=== PATIENT | male | born 1980 | race Caucasian/White ===

== ENCOUNTER 2018-11-30 13:12 | Emergency (ER) | payer MEDICAID ==
[2018-11-30 13:24] VITALS: RESP 18
[2018-11-30] MEDS ORDERED: SODIUM CHLORIDE 0.9% 1,000 ML IV STA (13:47)
--- NOTE | 2018-11-30 13:50 | ED ---
Syncope HPI - General Chief Complaint: Dizziness Stated Complaint: Nausea,light headed Time Seen by Provider: 11/30/18 13:14 Source: EMS, RN notes reviewed, old records reviewed Mode of arrival: EMS Limitations: language barrier - History of Present Illness Initial Comments: Patient is a 38-year-old male who presents return today with complaints of nausea and lightheadedness. Patient reports symptoms started today while he was at work. He states that he recently took medication for an upper respiratory infection and finished the antibiotic and steroids 3 days ago. Patient states that he does have some intermittent loose stools. He denies any chest pain or abdominal pain. He reports that he would get these waves of his body and search feel dizzy and lightheaded. He denies headache at this time.Patient denies any recent fever, chills, shortness of breath, chest pain, back pain, abdominal pain, nausea vomiting, numbness or tingling, dysuria or hematuria, constipation or diarrhea, headaches or visual changes, or any other current symptoms - Related Data Home Medications Medication Instructions Recorded Confirmed Ibuprofen [Motrin Ib] 600 mg PO Q6H PRN 11/30/18 11/30/18 Metoprolol Tartrate [Lopressor] 25 mg PO HS 11/30/18 11/30/18 Metoprolol Tartrate [Lopressor] 37.5 mg PO DAILY 11/30/18 11/30/18 Previous Rx's Medication Instructions Recorded Meclizine [Antivert] 12.5 mg PO Q6H #12 tablet 11/30/18 Allergies Allergy/AdvReac Type Severity Reaction Status Date / Time No Known Allergies Allergy Verified 11/30/18 13:33 Review of Systems ROS Statement: Those systems with pertinent positive or pertinent negative responses have been documented in the HPI. ROS Other: All systems not noted in ROS Statement are negative. Past Medical History Additional Past Medical History / Comment(s): PVC's History of Any Multi-Drug Resistant Organisms: None Reported Past Surgical History: Appendectomy, Cholecystectomy Past Psychological History: No Psychological Hx Reported Smoking Status: Never smoker Past Alcohol Use History: Occasional Past Drug Use History: None Reported General Exam - General Exam Comments Initial Comments: This is an alert and oriented 2-year-old male. No distress. Limitations: no limitations General appearance: alert, in no apparent distress Head exam: Present: atraumatic, normocephalic, normal inspection Eye exam: Present: normal appearance, PERRL, EOMI. Absent: scleral icterus, conjunctival injection, periorbital swelling ENT exam: Present: normal exam, mucous membranes moist Neck exam: Present: normal inspection. Absent: tenderness, meningismus, lymphadenopathy Respiratory exam: Present: normal lung sounds bilaterally. Absent: respiratory distress, wheezes, rales, rhonchi, stridor Cardiovascular Exam: Present: regular rate, normal rhythm, normal heart sounds. Absent: systolic murmur, diastolic murmur, rubs, gallop, clicks GI/Abdominal exam: Present: soft, normal bowel sounds. Absent: distended, tenderness, guarding, rebound, rigid Extremities exam: Present: normal inspection, full ROM, normal capillary refill. Absent: tenderness, pedal edema, joint swelling, calf tenderness Back exam: Present: normal inspection Neurological exam: Present: alert, oriented X3, CN II-XII intact Course Vital Signs 11/30/18 11/30/18 13:16 15:32 Temperature 98.7 F Pulse Rate 98 Pulse Rate [ 90 Sitting] Pulse Rate [ 105 H Standing] Pulse Rate [ 92 Supine] Respiratory 18 Rate Blood Pressure 136/96 Blood Pressure 135/86 [Sitting] Blood Pressure 128/94 [Standing] Blood Pressure 139/95 [Supine] O2 Sat by Pulse 100 Oximetry EKG Findings - EKG Comments: EKG Findings:: EKG performed at 1334 shows normal sinus rhythm, normal EKG noted. Ventricular rate of 87 beats were minute. Most 170 ms. QS duration 82 ms. QT QTc is 354/425 ms. Medical Decision Making - Medical Decision Making Patient is a 38-year-old male presents emergency Department today with complaints of lightheadedness. He reports that he felt dizzy while driving in her right ear via EMS. Also complained of some nausea. This EKG is normal. Normal troponin. Lab work is otherwise unremarkable. He complains of no pain at this time. Denies any dyspnea or chest pain or abdominal pain. He is given fluids. All of his lab work was unremarkable. Discussed with the Patient and signed could be possibly vertigo due to his recent URI. I discussed the importance of dictation that he stays hydrated. Patient denied any palpitations as well during these episodes. I discussed that he have close follow-up with his primary care physician and stay hydrated with water. Patient agrees to treatment plan will comply. Return parameters were discussed. - Lab Data Result diagrams: 11/30/18 13:31 11/30/18 13:31 Lab Results 11/30/18 11/30/18 11/30/18 Range/Units 13:31 13:31 13:31 WBC 7.1 (3.8-10.6) k/uL RBC 5.41 (4.30-5.90) m/uL Hgb 16.4 (13.0-17.5) gm/dL Hct 47.9 (39.0-53.0) % MCV 88.5 (80.0-100.0) fL MCH 30.2 (25.0-35.0) pg MCHC 34.2 (31.0-37.0) g/dL RDW 13.2 (11.5-15.5) % Plt Count 167 (150-450) k/uL Neutrophils % 72 % Lymphocytes % 19 % Monocytes % 5 % Eosinophils % 2 % Basophils % 0 % Neutrophils # 5.1 (1.3-7.7) k/uL Lymphocytes # 1.4 (1.0-4.8) k/uL Monocytes # 0.4 (0-1.0) k/uL Eosinophils # 0.2 (0-0.7) k/uL Basophils # 0.0 (0-0.2) k/uL PT 11.0 (9.0-12.0) sec INR 1.0 (<1.2) Sodium 141 (137-145) mmol/L Potassium 4.7 (3.5-5.1) mmol/L Chloride 107 (98-107) mmol/L Carbon Dioxide 25 (22-30) mmol/L Anion Gap 9 mmol/L BUN 14 (9-20) mg/dL Creatinine 0.91 (0.66-1.25) mg/dL Est GFR (CKD-EPI)AfAm >90 (>60 ml/min/1.73 sqM) Est GFR (CKD-EPI)NonAf >90 (>60 ml/min/1.73 sqM) Glucose 100 H (74-99) mg/dL Calcium 9.6 (8.4-10.2) mg/dL Total Bilirubin 0.8 (0.2-1.3) mg/dL AST 43 (17-59) U/L ALT 92 H (21-72) U/L Alkaline Phosphatase 65 (38-126) U/L Troponin I (0.000-0.034) ng/mL Total Protein 7.7 (6.3-8.2) g/dL Albumin 4.7 (3.5-5.0) g/dL Urine Color Urine Appearance (Clear) Urine pH (5.0-8.0) Ur Specific [place] (1.001-1.035) Urine Protein (Negative) Urine Glucose (UA) (Negative) Urine Ketones (Negative) Urine Blood (Negative) Urine Nitrite (Negative) Urine Bilirubin (Negative) Urine Urobilinogen (<2.0) mg/dL Ur Leukocyte Esterase (Negative) C. difficile (EIA) Intrp (Negative) 11/30/18 11/30/18 11/30/18 Range/Units 13:31 14:00 15:33 WBC (3.8-10.6) k/uL RBC (4.30-5.90) m/uL Hgb (13.0-17.5) gm/dL Hct (39.0-53.0) % MCV (80.0-100.0) fL MCH (25.0-35.0) pg MCHC (31.0-37.0) g/dL RDW (11.5-15.5) % Plt Count (150-450) k/uL Neutrophils % % Lymphocytes % % Monocytes % % Eosinophils % % Basophils % % Neutrophils # (1.3-7.7) k/uL Lymphocytes # (1.0-4.8) k/uL Monocytes # (0-1.0) k/uL Eosinophils # (0-0.7) k/uL Basophils # (0-0.2) k/uL PT (9.0-12.0) sec INR (<1.2) Sodium (137-145) mmol/L Potassium (3.5-5.1) mmol/L Chloride (98-107) mmol/L Carbon Dioxide (22-30) mmol/L Anion Gap mmol/L BUN (9-20) mg/dL Creatinine (0.66-1.25) mg/dL Est GFR (CKD-EPI)AfAm (>60 ml/min/1.73 sqM) Est GFR (CKD-EPI)NonAf (>60 ml/min/1.73 sqM) Glucose (74-99) mg/dL Calcium (8.4-10.2) mg/dL Total Bilirubin (0.2-1.3) mg/dL AST (17-59) U/L ALT (21-72) U/L Alkaline Phosphatase (38-126) U/L Troponin I <0.012 (0.000-0.034) ng/mL Total Protein (6.3-8.2) g/dL Albumin (3.5-5.0) g/dL Urine Color Yellow Urine Appearance Clear (Clear) Urine pH 6.5 (5.0-8.0) Ur Specific [place] 1.016 (1.001-1.035) Urine Protein Negative (Negative) Urine Glucose (UA) Negative (Negative) Urine Ketones Negative (Negative) Urine Blood Negative (Negative) Urine Nitrite Negative (Negative) Urine Bilirubin Negative (Negative) Urine Urobilinogen <2.0 (<2.0) mg/dL Ur Leukocyte Esterase Negative (Negative) C. difficile (EIA) Intrp Negative (Negative) - Radiology Data Radiology results: report reviewed Normal chest x-ray. Disposition Clinical Impression: Lightheaded Disposition: HOME SELF-CARE Condition: Good Instructions (If sedation given, give patient instructions): Lightheadedness ( ED) Additional Instructions: Patient advised of close follow-up with primary care physician. Rest, remain hydrated. Return to the emergency department if any alarming signs or symptoms occur. Prescriptions: Meclizine [Antivert] 12.5 mg PO Q6H #12 tablet Is patient prescribed a controlled substance at d/c from ED?: No Referrals: None,Stated [Primary Care Provider] - 1-2 days Emelia Ashby MD [STAFF PHYSICIAN] - 1-2 days Time of Disposition: 16:01
[2018-11-30 14:08] LABS: Basophils % (A) 0 %; Eosinophils # (A) 0.2 k/uL (0-0.7); Eosinophils % (A) 2 %; HCT 47.9 % (39.0-53.0); HGB 16.4 gm/dL (13.0-17.5); Lymphocytes # (A) 1.4 k/uL (1.0-4.8); Lymphocytes % (A) 19 %; MCH 30.2 pg (25.0-35.0); MCHC 34.2 g/dL (31.0-37.0); MCV 88.5 fL (80.0-100.0); Mean Platelet Volume 6.4; Monocytes # (A) 0.4 k/uL (0-1.0); Monocytes % (A) 5 %; Neutrophils # (A) 5.1 k/uL (1.3-7.7); Neutrophils % (A) 72 %; Platelet Count 167 k/uL (150-450); RBC 5.41 m/uL (4.30-5.90); RDW 13.2 % (11.5-15.5); WBC 7.1 k/uL (3.8-10.6)
[2018-11-30 14:18] LABS: Appearance,Urine Clear (Clear); Bilirubin,Urine Negative (Negative); Blood,Urine Negative (Negative); Color,Urine Yellow; Glucose,Urine (UA) Negative (Negative); Ketones,Urine Negative (Negative); Leukocyte Esterase,Urine Negative (Negative); Nitrite,Urine Negative (Negative); PH, Urine 6.5 (5.0-8.0); Protein,Urine Negative (Negative); Specific Gravity,Urine 1.016 (1.001-1.035); Urobilinogen,Urine <2.0 mg/dL (<2.0)
[2018-11-30 14:18] LABS: ALT 92 U/L (21-72); AST 43 U/L (17-59); Albumin 4.7 g/dL (3.5-5.0); Alkaline Phosphatase 65 U/L (38-126); Anion Gap 9 mmol/L; Blood Urea Nitrogen 14 mg/dL (9-20); Calcium 9.6 mg/dL (8.4-10.2); Carbon Dioxide 25 mmol/L (22-30); Chloride 107 mmol/L (98-107); Glucose 100 mg/dL (74-99); Potassium 4.7 mmol/L (3.5-5.1); Sodium 141 mmol/L (137-145); Total Bilirubin 0.8 mg/dL (0.2-1.3); Total Protein 7.7 g/dL (6.3-8.2)
--- NOTE | 2018-11-30 14:23 | XR ---
EXAMINATION TYPE: XR chest 2V DATE OF EXAM: 11/30/2018 COMPARISON: NONE HISTORY: Dizziness and nausea TECHNIQUE: Frontal and lateral views of the chest are obtained. FINDINGS: There is no focal air space opacity, pleural effusion, or pneumothorax seen. The cardiac silhouette size is within normal limits. The osseous structures are intact. IMPRESSION: No acute cardiopulmonary process.
[2018-11-30] MEDS ORDERED: MECLIZINE 12.5 MG TAB PO STA (16:01)
[2018-11-30 17:15] VITALS: BP 126/85; PULSE 92; TEMP 97.9
== END 2018-11-30 17:14 | disposition home or self-care (01) ==
LOC: EC 13:12
DX: R42 Dizziness and giddiness (principal); Z79.899 Other long term (current) drug therapy
CPT/HCPCS: 36415; 71046; 80053; 81003; 84484; 85025; 85610; 87324; 93005; 96360; 96361; 99285

== ENCOUNTER 2018-11-30 19:38 | Observation (INO) | payer MEDICAID ==
[2018-11-30] MEDS ORDERED: NALOXONE 0.4 MG/ML 1 ML VIAL IV PRN (22:21)
[2018-11-30] MEDS ORDERED: ACETAMINOPHEN TAB 325 MG TAB PO PRN (22:21)
--- NOTE | 2018-11-30 22:21 | ED ---
General Adult HPI - General Chief complaint: Dizziness Stated complaint: Revist-light headed Time Seen by Provider: 11/30/18 20:21 Source: patient Mode of arrival: wheelchair Limitations: no limitations - History of Present Illness Initial comments: 38-year-old male patient presents to the emergency department today for his second visit for complaints of dizziness and bilateral lower extremity tingling and weakness. Patient states that symptoms started this morning with intermittent waves of lightheadedness and flushed feeling. Patient states that at one point he became so dizzy fell he was going to pass out so he called an ambulance and was transported here. Patient did undergo extensive evaluation in the emergency department including labs and EKG which all appeared to be unremarkable. He was diagnosed with vertigo and discharged home with a prescription for Antivert. Patient states upon arrival he was still having intermittent episodes of dizziness however was sitting in his recliner he started to feel an intense tingling, weakness sensation in his bilateral lower extremities. Patient states that he did stand up and walk around which improved the sensation somewhat but it persisted so he presented here for further evaluation. He denies any unilateral weakness. Denies any numbness to the lower extremities. Denies any recent back injury or head injury. Denies any history of similar symptoms. Patient was recently treated for upper respiratory infection with Augmentin and steroids. Patient denies any recent rash, shortness breath, chest pain, abdominal pain, constipation, back pain, hematuria, dysuria, urinary urgency, urinary frequency, headache, visual changes , or any other complaints. - Related Data Home Medications Medication Instructions Recorded Confirmed Ibuprofen [Motrin Ib] 600 mg PO Q6H PRN 11/30/18 11/30/18 Metoprolol Tartrate [Lopressor] 25 mg PO HS 11/30/18 11/30/18 Metoprolol Tartrate [Lopressor] 37.5 mg PO DAILY 11/30/18 11/30/18 Previous Rx's Medication Instructions Recorded Meclizine [Antivert] 12.5 mg PO Q6H #12 tablet 11/30/18 Allergies Allergy/AdvReac Type Severity Reaction Status Date / Time No Known Allergies Allergy Verified 11/30/18 20:13 Review of Systems ROS Statement: Those systems with pertinent positive or pertinent negative responses have been documented in the HPI. ROS Other: All systems not noted in ROS Statement are negative. Past Medical History Additional Past Medical History / Comment(s): PVC's History of Any Multi-Drug Resistant Organisms: None Reported Past Surgical History: Appendectomy, Cholecystectomy Past Psychological History: No Psychological Hx Reported Smoking Status: Never smoker Past Alcohol Use History: Occasional Past Drug Use History: None Reported General Exam Limitations: no limitations General appearance: alert, in no apparent distress, other (This is a well- developed, well-nourished adult male patient in no acute distress. Vital signs upon presentation are temperature 99.3F, pulse 92, respirations 20, blood pressure 138/93, pulse ox 99% on room air.) Eye exam: Present: normal appearance, PERRL, EOMI, nystagmus (Horizontal gaze nystagmus bilateral, no vertical gaze nystagmus). Absent: scleral icterus, conjunctival injection, periorbital swelling ENT exam: Present: normal exam, normal oropharynx, mucous membranes moist Respiratory exam: Present: normal lung sounds bilaterally. Absent: respiratory distress, wheezes, rales, rhonchi, stridor Cardiovascular Exam: Present: regular rate, normal rhythm, normal heart sounds. Absent: systolic murmur, diastolic murmur, rubs, gallop, clicks GI/Abdominal exam: Present: soft, normal bowel sounds. Absent: distended, tenderness, guarding, rebound, rigid Neurological exam: Present: alert, oriented X3, CN II-XII intact, other ( Strength in all 4 extremities is 5/5.) Expanded Cranial nerves: EOM's Intact: Normal, Facial Palsy with Forehead Movement: Normal, Facial Palsy without Forehead Movement: Normal Cerebellar function: Finger to Nose: Normal Motor strength exam: RUE: 5, LUE: 5, RLE: 5, LLE: 5 Psychiatric exam: Present: normal affect, normal mood Skin exam: Present: warm, dry, intact, normal color. Absent: rash Course Vital Signs 11/30/18 19:56 Temperature 99.3 F Pulse Rate 92 Respiratory 20 Rate Blood Pressure 138/93 O2 Sat by Pulse 99 Oximetry EKG Findings - EKG Comments: EKG Findings:: EKG obtained at 2013 shows normal sinus rhythm with a ventricular rate of 86, AL interval 166, QRS duration 84, QT 350, QTC 418. No evidence of ST elevation or depression. Medical Decision Making - Medical Decision Making 38-year-old male patient presented to the emergency department today for evaluation of intermittent dizziness, lightheadedness, and bilateral leg weakness and tingling. Patient was seen and evaluated in the emergency department earlier today, did review labs from that visit which were unremarkable. Physical examination is unremarkable. He is neurologically intact with no focal neurologic deficits. Patient's second visit with worsening symptoms we will admit for observation for further evaluation the morning. Patient is aware of plan and verbalizes understanding. Disposition Clinical Impression: Dizziness, Weakness Disposition: ADMITTED IP TO THIS [facility] Condition: Serious Referrals: None,Stated [Primary Care Provider] - 1-2 days Decision to Admit Reason: Admit from EC Decision Date: 11/30/18 Decision Time: 22:20
[2018-11-30] MEDS: MECLIZINE 12.5 MG TAB PO SCH (23:35)
[2018-12-01] MEDS: METOPROLOL TARTRATE 25 MG TAB PO SCH ×2 (01:33→21:23)
[2018-12-01 02:39] VITALS: BMI 34.8
[2018-12-01] MEDS: SODIUM CHLORIDE 0.9% 1,000 ML IV SCH ×2 (02:40→17:37)
[2018-12-01] MEDS: MECLIZINE 12.5 MG TAB PO SCH ×4 (06:21→22:34)
[2018-12-01] MEDS: METOPROLOL TARTRATE 12.5 MG TAB PO SCH (08:08)
[2018-12-01] MEDS: LOPERAMIDE 2 MG CAP PO PRN ×2 (11:22→17:36)
--- NOTE | 2018-12-01 11:30 | CT ---
EXAMINATION TYPE: CT brain wo con DATE OF EXAM: 12/01/2018 COMPARISON: NONE HISTORY: Dizziness and head pressure. CT DLP: 1331 mGycm. Automated Exposure Control for Dose Reduction was Utilized. TECHNIQUE: CT scan of the head is performed without contrast. FINDINGS: There is no acute intracranial hemorrhage, mass effect, or midline shift identified. The ventricles and sulci are within normal limits in size. Trace mucosal thickening is seen within the right maxillary sinus. The globes are intact and the remaining visualized sinuses are clear. There is leftward nasal septal deviation. IMPRESSION: No acute intracranial hemorrhage, mass effect, or midline shift is seen.
[2018-12-01 13:11] LABS: Basophils % (A) 0 %; Eosinophils # (A) 0.2 k/uL (0-0.7); Eosinophils % (A) 2 %; HCT 47.1 % (39.0-53.0); HGB 15.9 gm/dL (13.0-17.5); Lymphocytes # (A) 1.5 k/uL (1.0-4.8); Lymphocytes % (A) 21 %; MCHC 33.9 g/dL (31.0-37.0); MCV 88.6 fL (80.0-100.0); Mean Platelet Volume 6.2; Monocytes # (A) 0.4 k/uL (0-1.0); Monocytes % (A) 5 %; Neutrophils # (A) 5.2 k/uL (1.3-7.7); Neutrophils % (A) 70 %; Platelet Count 184 k/uL (150-450); RBC 5.31 m/uL (4.30-5.90); RDW 13.2 % (11.5-15.5); WBC 7.4 k/uL (3.8-10.6)
[2018-12-01 13:13] LABS: ALT 91 U/L (21-72); AST 33 U/L (17-59); Albumin 4.5 g/dL (3.5-5.0); Alkaline Phosphatase 64 U/L (38-126); Anion Gap 7 mmol/L; Blood Urea Nitrogen 10 mg/dL (9-20); Calcium 9.3 mg/dL (8.4-10.2); Carbon Dioxide 27 mmol/L (22-30); Chloride 108 mmol/L (98-107); Glucose 81 mg/dL (74-99); Potassium 4.2 mmol/L (3.5-5.1); Sodium 142 mmol/L (137-145); Total Bilirubin 0.8 mg/dL (0.2-1.3); Total Protein 7.3 g/dL (6.3-8.2)
[2018-12-01 14:01] LABS: C Reactive Protein <5.0 mg/L (<10.0)
[2018-12-01 14:48] VITALS: RESP 16
[2018-12-01 15:20] LABS: Erythrocyte Sedimentation Rate 5 mm/hr (0-15)
[2018-12-01] MEDS ORDERED: IBUPROFEN 600 MG TAB PO STA (16:16)
--- NOTE | 2018-12-01 16:47 | HP ---
HISTORY AND PHYSICAL DATE OF SERVICE: 12/01/2018 CHIEF COMPLAINTS: Dizziness and lightheadedness. HISTORY OF PRESENT ILLNESS: This 38-year-old gentleman with a past medical history of PVCs, appendectomy, cholecystectomy, not being followed by any primary care physician in the outpatient setting, was not feeling well since yesterday. Patient felt dizzy at work, which was increasing in intensity. Patient also had some tingling and weakness. The patient came to [facility]. The patient also had an episode of diarrhea. There is no true vertigo. There is no weakness. There is not any headache, loss of consciousness, chest pain, palpitation. Patient admitted for further evaluation and treatment. The C difficile was negative. The ALT was slightly elevated at 91. PAST MEDICAL HISTORY: History of PVCs, appendectomy, cholecystectomy. MEDICATIONS: 1. Metoprolol 37.5 mg p.o. daily and 25 mg at bedtime. 2. Antivert 12.5 mg p.o. q.6 p.r.n. 3. Motrin p.r.n. ALLERGIES: NONE. FAMILY HISTORY: No history of heart disease or strokes in the family. SOCIAL HISTORY: No history of smoking. Occasional alcohol. REVIEW OF SYSTEMS: ENT: As mentioned earlier. CARDIOVASCULAR SYSTEM: No angina, palpitations. Otherwise as mentioned earlier. RESPIRATORY SYSTEM: No cough, hemoptysis. GI: As mentioned earlier. : No dysuria or retention. NERVOUS SYSTEM: No numbness, weakness. Otherwise as mentioned earlier. ALLERGY/IMMUNOLOGY: No asthma, hayfever. MUSCULOSKELETAL: As mentioned earlier. HEMATOLOGY/ONCOLOGY: No history of anemia. ENDOCRINE: No history of diabetes, hypothyroidism. CONSTITUTIONAL: As mentioned earlier. DERMATOLOGY: Negative. RHEUMATOLOGY: Negative. PSYCHIATRY: As mentioned earlier. PHYSICAL EXAMINATION: Patient alert and oriented x3. Pulse 84, blood pressure 138/84. No orthostatic changes. Respiration 16, temperature 98.6, pulse ox 96% on room air. HEENT: Conjunctivae normal. NECK: No jugular venous distention. CARDIOVASCULAR SYSTEM: S1, S2 muffled. RESPIRATORY SYSTEM: Breath sounds diminished at the bases. No rhonchi. No crackles. ABDOMEN: Soft, non-tender. No mass palpable. LEGS: No edema. No swelling. NERVOUS SYSTEM: Higher functions as mentioned earlier. Moves all 4 limbs. No focal motor or sensory deficit. LYMPHATICS: No lymph node palpable in neck, axillae or groin. SKIN: No ulcer, rash, bleeding. JOINTS: No active deforming arthropathy. LABS: CBC within normal limits. Sodium 142, potassium 4.2. ALT is 91. ASSESSMENT: 1. Dizziness for evaluation. 2. Diarrhea, possible acute viral illness. 3. Increased ALT. 4. History of premature ventricular contractions. 5. Appendectomy. 6. Cholecystectomy. RECOMMENDATIONS AND DISCUSSION: In this 38-year-old gentleman who presented with multiple complex medical issues, we will monitor the patient closely. C difficile negative. We will treat the patient symptomatically, start full diet and resume the home medications. Repeat labs. The prognosis is guarded because of the multiple complex medical issues, I would also recommend a CT scan of the brain to complete the workup. Also I recommend the patient follow up with a primary physician closely after discharge. The patient understands and agrees. Further recommendations to follow. DEE / MAYCON: [id number] /
[2018-12-01 21:35] LABS: Appearance,Urine Clear (Clear); Bilirubin,Urine Negative (Negative); Blood,Urine Negative (Negative); Color,Urine Colorless; Glucose,Urine (UA) Negative (Negative); Ketones,Urine Negative (Negative); Leukocyte Esterase,Urine Negative (Negative); Nitrite,Urine Negative (Negative); PH, Urine 5.5 (5.0-8.0); Protein,Urine Negative (Negative); Specific Gravity,Urine 1.002 (1.001-1.035); Urobilinogen,Urine <2.0 mg/dL (<2.0)
[2018-12-01 21:46] LABS: Amphetamine Screen,Urine Not Detected (NotDetected); Barbiturate Screen,Urine Not Detected (NotDetected); Benzodiazepines Screen,Urine Not Detected (NotDetected); Cocaine Screen,Urine Not Detected (NotDetected); Methadone Screen, Urine Not Detected (NotDetected); Opiate Screen,Urine Not Detected (NotDetected); Oxycodone Screen, Urine Not Detected (NotDetected); Phencyclidine Screen,Urine Not Detected (NotDetected); Tricyclic Antidepressant,Urine Not Detected (NotDetected); Urn Cannabinoid Scrn Not Detected (NotDetected)
[2018-12-02] MEDS: SODIUM CHLORIDE 0.9% 1,000 ML IV SCH (03:50)
[2018-12-02] MEDS: MECLIZINE 12.5 MG TAB PO SCH ×2 (04:32→10:49)
[2018-12-02 05:52] VITALS: BP 129/79; PULSE 74; TEMP 98.5
[2018-12-02] MEDS: METOPROLOL TARTRATE 12.5 MG TAB PO SCH (08:08)
[2018-12-02 09:54] LABS: Basophils % (A) 0 %; Eosinophils # (A) 0.2 k/uL (0-0.7); Eosinophils % (A) 2 %; HCT 49.3 % (39.0-53.0); HGB 16.6 gm/dL (13.0-17.5); Lymphocytes # (A) 1.9 k/uL (1.0-4.8); Lymphocytes % (A) 24 %; MCH 30.4 pg (25.0-35.0); MCHC 33.6 g/dL (31.0-37.0); MCV 90.4 fL (80.0-100.0); Mean Platelet Volume 6.6; Monocytes # (A) 0.4 k/uL (0-1.0); Monocytes % (A) 5 %; Neutrophils # (A) 5.4 k/uL (1.3-7.7); Neutrophils % (A) 67 %; Platelet Count 192 k/uL (150-450); RBC 5.46 m/uL (4.30-5.90); RDW 13.3 % (11.5-15.5)
[2018-12-02 10:01] LABS: ALT 98 U/L (21-72); AST 46 U/L (17-59); Albumin 4.8 g/dL (3.5-5.0); Alkaline Phosphatase 65 U/L (38-126); Anion Gap 11 mmol/L; Blood Urea Nitrogen 10 mg/dL (9-20); Calcium 9.5 mg/dL (8.4-10.2); Carbon Dioxide 26 mmol/L (22-30); Chloride 107 mmol/L (98-107); Glucose 108 mg/dL (74-99); Potassium 4.1 mmol/L (3.5-5.1); Sodium 144 mmol/L (137-145); Total Bilirubin 0.8 mg/dL (0.2-1.3); Total Protein 7.8 g/dL (6.3-8.2)
--- NOTE | 2018-12-03 07:18 | DS ---
DISCHARGE SUMMARY DATE OF SERVICE: 12/02/2018 FINAL DIAGNOSES: 1. Dizziness and diarrhea possible acute viral syndrome, improved. 2. Increased ALT possibly secondary to acute viral syndrome, need outpatient followup. 3. History of premature ventricular contractions. 4. Appendectomy. 5. Cholecystectomy. DISCHARGE DISPOSITION: The patient is being discharged in stable condition with guarded prognosis. HISTORY OF PRESENT ILLNESS: This 38-year-old gentleman admitted to the hospital with dizziness, lightheadedness. Patient was treated symptomatically. Patient improved significantly. As mentioned earlier, ALT was slightly elevated at 90. I would recommend outpatient followup. C difficile was negative. DISCHARGE ADVICE AND MEDICATIONS: 1. Diet is cardiac diet. 2. Followup with primary care physician in two to three days. MEDICATIONS ARE: 1. Metoprolol 25 mg q.h.s. and 37.5 mg p.o. daily. 2. Antivert 12.5 mg q.6h p.r.n. 3. Motrin p.r.n. MMTRISTON / MAYCON: [id number] /
== END 2018-12-02 13:31 | disposition home or self-care (01) ==
LOC: EC 19:38 → 4MS4W 12-01 00:25
PROVIDERS: ADMIT Hospitalist; ATTEND Hospitalist
DX: R42 Dizziness and giddiness (principal); R19.7 Diarrhea, unspecified; R20.2 Paresthesia of skin; R53.1 Weakness; I49.3 Ventricular premature depolarization; R74.0 Nonspecific elevation of levels of transaminase and lactic acid dehydrogenase [LDH]; Z90.49 Acquired absence of other specified parts of digestive tract; Z79.899 Other long term (current) drug therapy
CPT/HCPCS: 96360; 96361 ×2; 99284; 93005; 80053 ×2; 85652; 85025 ×2; 86140; 81003; 80306; 70450; G0378 ×2

== ENCOUNTER → 2019-05-13 | Outpatient (CLI) | payer MEDICAID ==
[2019-05-13 12:16] LABS: Basophils % (A) 0 %; Eosinophils # (A) 0.2 k/uL (0-0.7); Eosinophils % (A) 2 %; HCT 50.9 % (39.0-53.0); HGB 17.2 gm/dL (13.0-17.5); Lymphocytes # (A) 1.4 k/uL (1.0-4.8); Lymphocytes % (A) 14 %; MCH 29.6 pg (25.0-35.0); MCHC 33.7 g/dL (31.0-37.0); MCV 87.9 fL (80.0-100.0); Mean Platelet Volume 6.6; Monocytes # (A) 0.5 k/uL (0-1.0); Monocytes % (A) 5 %; Neutrophils # (A) 7.4 k/uL (1.3-7.7); Neutrophils % (A) 77 %; Platelet Count 186 k/uL (150-450); RBC 5.79 m/uL (4.30-5.90); RDW 13.6 % (11.5-15.5); WBC 9.5 k/uL (3.8-10.6)
[2019-05-13 18:57] LABS: T4, Free (Free Thyroxine) 1.1 ng/dL (0.80-1.80)
[2019-05-13 19:09] LABS: African American GFR (CKD) 96.8 (60.0-200.0); Albumin 5.1 g/dL (3.80-4.90); Albumin/Globulin Ratio 2.22 (1.60-3.17); Anion Gap 12.7 mmol/L (4.00-12.00); BUN/Creat Ratio 11.82 Ratio (12.00-20.00); Calcium 9.7 mg/dL (8.7-10.3); Carbon Dioxide 25.3 mmol/L (21.6-31.8); Globulin 2.3 g/dL (1.6-3.3); Non-African American GFR(CKD) 83.5 (60.0-200.0); Potassium 4.6 mmol/L (3.5-5.5); Total Bilirubin 0.6 mg/dL (0.2-1.2); Total Protein 7.4 g/dL (6.2-8.2)
== END | disposition home or self-care (01) ==
LOC: LABWHC1 11:23
PROVIDERS: ATTEND Family Medicine
DX: R20.0 Anesthesia of skin (principal); R42 Dizziness and giddiness; R63.0 Anorexia
CPT/HCPCS: 36415; 80053; 83525; 84439; 84443; 85025; 86337

== ENCOUNTER → 2019-06-10 | Outpatient (CLI) | payer MEDICAID ==
[2019-06-10 12:43] LABS: Basophils % (A) 0 %; Eosinophils # (A) 0.2 k/uL (0-0.7); Eosinophils % (A) 3 %; HCT 47.3 % (39.0-53.0); HGB 15.9 gm/dL (13.0-17.5); Lymphocytes # (A) 1.8 k/uL (1.0-4.8); Lymphocytes % (A) 26 %; MCH 30.1 pg (25.0-35.0); MCHC 33.6 g/dL (31.0-37.0); MCV 89.5 fL (80.0-100.0); Mean Platelet Volume 6.7; Monocytes # (A) 0.4 k/uL (0-1.0); Monocytes % (A) 5 %; Neutrophils # (A) 4.5 k/uL (1.3-7.7); Neutrophils % (A) 64 %; Platelet Count 146 k/uL (150-450); RBC 5.28 m/uL (4.30-5.90); RDW 13.9 % (11.5-15.5)
[2019-06-10 16:39] LABS: African American GFR (CKD) 108.6 (60.0-200.0); Albumin 4.7 g/dL (3.80-4.90); Albumin/Globulin Ratio 2.35 (1.60-3.17); Anion Gap 8.9 mmol/L (4.00-12.00); Calcium 9.5 mg/dL (8.7-10.3); Carbon Dioxide 26.1 mmol/L (21.6-31.8); Potassium 4.4 mmol/L (3.5-5.5); Total Bilirubin 0.4 mg/dL (0.2-1.2); Total Protein 6.7 g/dL (6.2-8.2)
[2019-06-10 16:47] LABS: T4, Free (Free Thyroxine) 1.1 ng/dL (0.80-1.80)
== END | disposition home or self-care (01) ==
LOC: LABWHC1 11:56
PROVIDERS: ATTEND Family Medicine
DX: J01.01 Acute recurrent maxillary sinusitis (principal); R63.0 Anorexia
CPT/HCPCS: 36415; 80053; 84439; 84443; 85025

== ENCOUNTER 2019-06-22 11:06 | Emergency (ER) | payer MEDICAID ==
[2019-06-22 11:15] VITALS: RESP 18
--- NOTE | 2019-06-22 11:42 | ED ---
Chest Pain HPI - General Chief Complaint: Chest Pain Stated Complaint: Heavy chest/Hx of heart problems Time Seen by Provider: 06/22/19 11:28 Source: patient, RN notes reviewed, old records reviewed Mode of arrival: wheelchair Limitations: no limitations - History of Present Illness Initial Comments: This is a 38-year-old male to ER for evaluation of palpitations heart fluttering. He has history of PVCs recent diagnosis of dizziness vertigo. Patient has had multiple monitor in the past. Some Toprol for PVCs. Patient states he felt symptoms coming on today. He is much recent dietary changes trying to lose weight and increased exercise. Patient denies any other all is no fevers or nausea vomiting diarrhea. Patient denies drug or alcohol abuse. Patient denies significant chest pain or chest pain currently. No significant diaphoresis, lightheadedness. To be positional but no current lightheadedness. Patient states he is feeling his heart is fluttering, he was sitting at his desk at work today he states he's been told it might be anxiety doesn't feel anxious and has no increased stress in his life MD Complaint: chest pain -: days(s) Onset: during rest, during exertion Pain Location: substernal (Feels PVCs and chest tightness) Pain Radiation: none Severity: mild Severity scale (1-10): 2 Quality: tightness Consistency: intermittent Improves With: nothing Worsens With: nothing Context: other (Prior history of PVC) Anginal Symptoms: other (Non-) Other Symptoms: palpitations Treatments Prior to Arrival: none - Related Data Home Medications Medication Instructions Recorded Confirmed Metoprolol Tartrate [Lopressor] 37.5 mg PO DAILY 11/30/18 06/22/19 Ascorbic Acid [Vitamin C] 500 mg PO DAILY 06/22/19 06/22/19 Cholecalciferol (Vitamin D3) 2,000 unit PO HS 06/22/19 06/22/19 [Vitamin D3] Cyanocobalamin (Vitamin B-12) 1,000 mcg PO DAILY 06/22/19 06/22/19 [Vitamin B-12] Magnesium 200 mg PO HS 06/22/19 06/22/19 Zinc 50 mg PO HS 06/22/19 06/22/19 Allergies Allergy/AdvReac Type Severity Reaction Status Date / Time No Known Allergies Allergy Verified 06/22/19 11:31 Review of Systems ROS Statement: Those systems with pertinent positive or pertinent negative responses have been documented in the HPI. ROS Other: All systems not noted in ROS Statement are negative. EKG Findings - EKG Comments: EKG Findings:: EKG shows normal sinus rhythm rate of 60, MI 170, QRS 82, QTc 391 Past Medical History Additional Past Medical History / Comment(s): PVC's History of Any Multi-Drug Resistant Organisms: None Reported Past Surgical History: Appendectomy, Cholecystectomy Past Psychological History: No Psychological Hx Reported Smoking Status: Never smoker Past Alcohol Use History: Occasional Past Drug Use History: None Reported General Exam Limitations: no limitations General appearance: alert, in no apparent distress Head exam: Present: atraumatic, normocephalic, normal inspection Eye exam: Present: normal appearance, PERRL, EOMI. Absent: scleral icterus, conjunctival injection, periorbital swelling ENT exam: Present: normal exam, mucous membranes moist Neck exam: Present: normal inspection. Absent: tenderness, meningismus, lymphadenopathy Respiratory exam: Present: normal lung sounds bilaterally. Absent: respiratory distress, wheezes, rales, rhonchi, stridor Cardiovascular Exam: Present: regular rate, normal rhythm, normal heart sounds. Absent: systolic murmur, diastolic murmur, rubs, gallop, clicks GI/Abdominal exam: Present: soft, normal bowel sounds. Absent: distended, tenderness, guarding, rebound, rigid Extremities exam: Present: normal inspection, full ROM, normal capillary refill. Absent: tenderness, pedal edema, joint swelling, calf tenderness Back exam: Present: normal inspection Neurological exam: Present: alert, oriented X3, CN II-XII intact Psychiatric exam: Present: normal affect, normal mood Skin exam: Present: warm, dry, intact, normal color. 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 Feels comfortable following up with Dr. Boss and primary care as an outpatient. Chest Pain MDM - MDM 38-year-old male the ER for evaluation palpitations, history of same no significant PVCs here in the ER, lab values are normal. EKG is negative. Again patient's a symptomatically with history of wearing prior Holter monitor, taking metoprolol is prescribed and can be discharged home Patient does admit to some mild anxiety, but a question of this may be anxiety discussion is made to discontinue follow-up with primary care Disposition Clinical Impression: Dizziness, Palpitations Disposition: HOME SELF-CARE Condition: Good Instructions (If sedation given, give patient instructions): Heart Palpitations (ED), Premature Ventricular Contractions (ED) Is patient prescribed a controlled substance at d/c from ED?: No Referrals: Leon Cruz MD [Primary Care Provider] - 1-2 days
[2019-06-22] MEDS ORDERED: SODIUM CHLORIDE 0.9% 1,000 ML IV STA (11:57)
[2019-06-22 12:06] LABS: Basophils # (A) 0.1 k/uL (0-0.2); Basophils % (A) 1 %; Eosinophils # (A) 0.1 k/uL (0-0.7); Eosinophils % (A) 2 %; HCT 48.5 % (39.0-53.0); HGB 16.8 gm/dL (13.0-17.5); Lymphocytes # (A) 1.1 k/uL (1.0-4.8); Lymphocytes % (A) 18 %; MCH 30.2 pg (25.0-35.0); MCHC 34.7 g/dL (31.0-37.0); MCV 86.9 fL (80.0-100.0); Mean Platelet Volume 6.8; Monocytes # (A) 0.3 k/uL (0-1.0); Monocytes % (A) 4 %; Neutrophils # (A) 4.6 k/uL (1.3-7.7); Neutrophils % (A) 73 %; Platelet Count 176 k/uL (150-450); RBC 5.58 m/uL (4.30-5.90); RDW 13.7 % (11.5-15.5); WBC 6.3 k/uL (3.8-10.6)
[2019-06-22 12:15] LABS: INR 1.1 (<1.2); Partial Thromboplastin Time 25.5 sec (22.0-30.0); Prothrombin Time 11.2 sec (9.0-12.0)
[2019-06-22 12:18] LABS: ALT 46 U/L (21-72); AST 27 U/L (17-59); African American GFR (CKD) >90 (>60 ml/min/1.73 sqM); Albumin 5.1 g/dL (3.5-5.0); Alkaline Phosphatase 71 U/L (38-126); Anion Gap 10 mmol/L; Blood Urea Nitrogen 15 mg/dL (9-20); Calcium 9.9 mg/dL (8.4-10.2); Carbon Dioxide 26 mmol/L (22-30); Chloride 104 mmol/L (98-107); Creatine Kinase 58 U/L (55-170); Glucose 87 mg/dL (74-99); Magnesium 2.3 mg/dL (1.6-2.3); Phosphorus 2.6 mg/dL (2.5-4.5); Potassium 4.4 mmol/L (3.5-5.1); Sodium 140 mmol/L (137-145); Total Bilirubin 0.6 mg/dL (0.2-1.3); Total Protein 8.2 g/dL (6.3-8.2)
[2019-06-22 12:41] LABS: Creatine Kinase MB <0.2 ng/mL (0.0-2.4); Troponin I <0.012 ng/mL (0.000-0.034)
[2019-06-22] MEDS ORDERED: AZITHROMYCIN 500 MG TAB PO STA (14:32)
[2019-06-22] MEDS ORDERED: methylPREDNISolone SOD SUCCI 125 MG/2 ML VIAL IV STA (14:32)
[2019-06-22] MEDS: IPRATROPIUM-ALBUTEROL 3 ML NEB INHALATION STA (14:40)
--- NOTE | 2019-06-22 15:25 | XR ---
EXAMINATION TYPE: XR chest 2V DATE OF EXAM: 06/22/2019 COMPARISON: 11/30/2018 HISTORY: Intermittent chest pain and heaviness. Palpitations and cough. TECHNIQUE: Frontal and lateral views of the chest are obtained. FINDINGS: There is no focal air space opacity, pleural effusion, or pneumothorax seen. The cardiac silhouette size is within normal limits. The osseous structures are intact. There minimal degenerat ja changes of the thoracic spine. IMPRESSION: No acute cardiopulmonary process.
[2019-06-22 16:30] VITALS: BP 119/76; PULSE 85; TEMP 98.5
== END 2019-06-22 16:29 | disposition home or self-care (01) ==
LOC: EC 11:06
DX: R00.2 Palpitations (principal); R42 Dizziness and giddiness; R07.2 Precordial pain; I49.3 Ventricular premature depolarization; Z79.899 Other long term (current) drug therapy
CPT/HCPCS: 36415; 94640; 93005; 83880; 80053; 82550; 82553; 83735; 84100; 84443; 84484; 85025; 85610; 85730; 71046; 99285; 96374; 96361; J2930

== ENCOUNTER → 2019-10-20 | Outpatient (CLI) | payer MEDICAID ==
[2019-10-20 16:44] LABS: Basophils # (A) 0.1 k/uL (0-0.2); Basophils % (A) 2 %; Eosinophils # (A) 0.1 k/uL (0-0.7); Eosinophils % (A) 2 %; HGB 17.2 gm/dL (13.0-17.5); Lymphocytes # (A) 1.8 k/uL (1.0-4.8); Lymphocytes % (A) 21 %; MCH 30.6 pg (25.0-35.0); MCHC 34.4 g/dL (31.0-37.0); Mean Platelet Volume 7.1; Monocytes # (A) 0.4 k/uL (0-1.0); Monocytes % (A) 4 %; Neutrophils # (A) 5.8 k/uL (1.3-7.7); Neutrophils % (A) 70 %; Platelet Count 175 k/uL (150-450); RBC 5.62 m/uL (4.30-5.90); RDW 12.9 % (11.5-15.5); WBC 8.2 k/uL (3.8-10.6)
[2019-10-20 20:56] LABS: Erythrocyte Sedimentation Rate 2 mm/hr (0-15)
[2019-10-21 00:37] LABS: C Reactive Protein <0.4 mg/dL (0.0-0.8); Rheumatoid Factor, Qnt 7 IU/mL (0-15)
[2019-10-21 01:15] LABS: Cyclic Citrull Pep IgG Unit <0.5 U/mL; Cyclic Citrullinated Pep IgG NEGATIVE (NEGATIVE); Gliadin AB IgA, Deaminated NEGATIVE (NEGATIVE); Gliadin AB IgA, Unit <0.2 U/mL; Gliadin AB IgG, Deaminated NEGATIVE (NEGATIVE)
== END | disposition home or self-care (01) ==
LOC: LABWHC1 15:23
PROVIDERS: ATTEND Family Medicine
DX: R59.1 Generalized enlarged lymph nodes (principal); R53.82 Chronic fatigue, unspecified; Z68.35 Body mass index [BMI] 35.0-35.9, adult
CPT/HCPCS: 36415; 83516; 84439; 84443; 85025; 85652; 86038; 86140; 86200; 86431; 86618

== ENCOUNTER → 2020-04-10 | Outpatient (CLI) | payer MEDICAID ==
--- NOTE | 2020-04-10 21:56 | CONS ---
CONSULTATION REASON FOR CONSULTATION: Sleep apnea. This patient is 39, coming in for sleep apnea workup. The patient has been snoring loudly and quits breathing at night, has been very tired and foggy and sleepy during the day. He wakes up occasionally choking and gasping for air, especially when he is sleeping on his back. On a few occasions he wakes up in the middle of the night because of loud snoring. He goes to bed between 9 and 10 p.m., wakes up at 7 a.m. in the morning, feels non-refreshed. On weekends he wakes up at 9 a.m. in the morning. It takes him a few minutes to fall asleep at night. He does not take naps. However, he can easily take a nap if given the opportunity to do so. Occasionally he wakes up in the middle of night to urinate. No sleep paralysis. No hallucinations or cataplexy. No other major medical problems or comorbidities. He has had PVCs, under the care of Dr. Boss, currently on metoprolol. PAST MEDICAL HISTORY: History of PVCs; otherwise no cardiac history. PAST SURGICAL HISTORY: Negative. DRUG ALLERGIES: NOT KNOWN. OUTPATIENT MEDICATIONS: Outpatient medications include metoprolol 25 mg p.o. b.i.d. SOCIAL HISTORY: Nonsmoker. No history of alcoholism. No history of IV drugs. FAMILY HISTORY: Father is healthy. Mother has breast cancer. 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 REVIEW OF SYSTEMS: Fourteen-point review of systems was done. Positive findings were all mentioned above in the history of present illness. PHYSICAL EXAMINATION: BP is 130/85, pulse 80, respirations 16, temperature 98.5, saturation 96% on room air. Height is 6 feet 3 inches, weight is 283, BMI 35.3. GENERAL APPEARANCE: Calm, comfortable. HEAD: Atraumatic, normocephalic. NECK: Supple. No JVD. No goiter or neck masses. Mallampati class IV. LUNGS: Clear to auscultation. HEART: Heart sounds are regular rate and rhythm. Normal S1, S2. No S3, S4. No murmurs. ABDOMEN: Soft, nontender. No organomegaly. EXTREMITIES: No edema. No cyanosis or clubbing. NEUROLOGIC: Awake and alert. There is no focal neurological deficit. IMPRESSION: 1. Hypersomnia with an Caraway score of 9. Overall clinical suspicion for sleep apnea is quite high. Further investigation is needed. 2. Loud snoring. 3. Borderline obesity with a body mass index of 35.5. 4. Occasional premature ventricular contractions. PLAN: 1. Encourage weight loss. 2. Sleep on his side. 3. Avoid alcoholic beverages at night time. 4. Implement good sleep hygiene measures. 5. Home sleep study to rule out obstructive sleep apnea. MMODL / MAYCON: [id number] /
== END | disposition home or self-care (01) ==
LOC: SLEEP 16:26
PROVIDERS: ATTEND Internal Medicine
DX: R06.83 Snoring (principal); Z79.899 Other long term (current) drug therapy
CPT/HCPCS: 99211

== ENCOUNTER 2020-08-07 09:43 | Day surgery (SDC) | payer MEDICAID ==
[2020-08-03 12:04] VITALS: BMI 34.3
[~2020-08-07 09:43] MED LIST: LACTATED RINGERS 1,000 ML IV SCH; LIDOCAINE 1% (10MG/ML) FOR IV START INTRADERMA PRN
[2020-08-07 10:20] VITALS: TEMP 96.8
[2020-08-07] MEDS ORDERED: LIDOCAINE 1% INJ 10MG/ML (20 ML MDV) ONE (11:09)
[2020-08-07] MEDS ORDERED: PROPOFOL 10 MG/ML 20 ML VIAL IV ONE (11:09)
--- NOTE | 2020-08-07 11:13 | P.GSHP ---
History of Present Illness H&P Date: 08/07/20 Chief Complaint: Change in bowel habits Patient is here today for colonoscopy. He has not had one previously. Describes loose stools for the last several years. 3-5 times per day. No rectal bleeding. No family history of colon cancer or polyps. Past Medical History Past Medical History: GERD/Reflux, Hypertension, Sleep Apnea/CPAP/BIPAP Additional Past Medical History / Comment(s): PVC's, recent change in bowel habits, frequent diarrhea, uses CPAP History of Any Multi-Drug Resistant Organisms: None Reported Past Surgical History: Appendectomy, Cholecystectomy Past Anesthesia/Blood Transfusion Reactions: No Reported Reaction Smoking Status: Never smoker Medications and Allergies Home Medications Medication Instructions Recorded Confirmed Type Metoprolol Tartrate [Lopressor] 25 mg PO BID 11/30/18 08/07/20 History FLUoxetine HCL [PROzac] 20 mg PO DAILY 08/03/20 08/07/20 History Loratadine [Claritin] 10 mg PO DAILY 08/03/20 08/07/20 History Allergies Allergy/AdvReac Type Severity Reaction Status Date / Time No Known Allergies Allergy Verified 08/07/20 10:07 Surgical - Exam Vital Signs Temp Pulse Resp BP Pulse Ox 96.8 F L 68 16 133/82 97 08/07/20 10:18 08/07/20 10:18 08/07/20 10:18 08/07/20 10:18 08/07/20 10:18 Physical exam: General: Well-developed, well-nourished HEENT: Normocephalic, sclerae nonicteric Abdomen: Nontender, nondistended Extremities: No edema Neuro: Alert and oriented Assessment and Plan (1) Change in bowel habits Narrative/Plan: Will proceed with colonoscopy at this time Current Visit: Yes Status: Acute Code(s): R19.4 - CHANGE IN BOWEL HABIT SNOMED Code(s): 113611320
--- NOTE | 2020-08-07 11:25 | P.PCN ---
Date of Procedure: 08/07/20 Procedure(s) Performed: PREOPERATIVE DIAGNOSIS: Change in bowel habits, frequent diarrhea POSTOPERATIVE DIAGNOSIS: Normal exam PROCEDURE: Colonoscopy with random biopsy ANESTHESIA: MAC SURGEON: Stanton Tinsley M.D. SPECIMENS: Colon biopsy ENDOSCOPIC PROCEDURE: The patient was placed on the endoscopy table in the left decubitus position. The Olympus colonoscope was inserted into the anus and passed under direct visualization to the base of the cecum. The appendiceal orifice was visualized. From that point the scope was slowly withdrawn inspecting all surfaces carefully. There were no neoplastic inflammatory or polypoid lesions throughout the cecum, ascending, transverse, descending, sigmoid and rectum. There was no visible diverticulosis noted. The patient's prep was slightly suboptimal. Random biopsies took place throughout the colon. Digital rectal examination was normal. The patient was taken to the recovery room in stable condition per anesthesia guidelines. RECOMMENDATIONS: Await biopsy results. Begin colestipol for the patient's chronic diarrhea.
[2020-08-07 11:28] VITALS: PULSE 72; RESP 17
[2020-08-07 11:40] VITALS: BP 122/82
--- NOTE | 2020-08-07 12:01 | P.PN ---
Progress Note - Text Progress Note Date: 08/07/20 Patient evaluated in the recovery room. Complaining of an umbilical hernia. Hernia is reducible. Mild pain at times. Slight increase in size. Had a previous lap appendectomy and lap [place] in the past. Options of repair discussed. He will consider and notify me. Risks of bleeding, infection, recurrence, bladder and bowel injury, numbness, nerve injury were discussed with the patient. The patient understands and wishes to proceed.
[2020-08-07] MEDS ORDERED: ONDANSETRON 4 MG/2 ML VIAL IVP PRN (20:02)
[2020-08-07] MEDS ORDERED: fentaNYL (PF) 50 MCG/ML 2 ML AMP IV PRN (20:02)
[2020-08-07] MEDS ORDERED: MIDAZOLAM 2 MG/2 ML VIAL IV PRN (20:02)
[2020-08-07] MEDS ORDERED: LACTATED RINGERS 1,000 ML IV SCH (20:15)
== END 2020-08-07 12:03 | disposition home or self-care (01) ==
LOC: ORWHC2ENDO 09:43
PROVIDERS: ATTEND Surgery
DX: K52.9 Noninfective gastroenteritis and colitis, unspecified (principal); R19.4 Change in bowel habit; K21.9 Gastro-esophageal reflux disease without esophagitis; I10 Essential (primary) hypertension; G47.30 Sleep apnea, unspecified; Z99.89 Dependence on other enabling machines and devices; I49.3 Ventricular premature depolarization; Z90.49 Acquired absence of other specified parts of digestive tract; Z98.890 Other specified postprocedural states; Z79.899 Other long term (current) drug therapy
CPT/HCPCS: 88305; 45380; J2001; J2704

== ENCOUNTER → 2020-09-25 | Outpatient (CLI) | payer MEDICAID ==
--- NOTE | 2020-09-25 17:14 | PN ---
PROGRESS NOTE Amauri is 40, diagnosed having obstructive sleep apnea, AHI of 19.1. Currently he is being treated with a BiPAP at a pressure of 8/5 cm of water. He is doing very well. He is trying to get more accustomed and adjusted with his mask. At times he is having leaks. Overall his treatment has been successful. He has been utilizing his machine more than 4 hours approximately 70% of the time. His BiPAP use for the past 30 days has been 25/30. His average usage is around 5.4 hours, and his tidal volume is at 600 with a rate of 16, and his AHI is down to 3.5. He is currently using a Simplus full- face mask, medium size. REVIEW OF SYSTEMS: Fourteen-point review of systems was done. Positive findings were all mentioned above in the history of present illness. Treatment is successful. PHYSICAL EXAMINATION: VITALS: Blood pressure is 122/81, pulse 78, respirations 16, temperature 98.8, saturation 99% on room air. Weight is 277. GENERAL APPEARANCE: Calm, comfortable. HEAD: Atraumatic, normocephalic. NECK: Supple. No JVD. No goiter or neck masses. LUNGS: Clear to auscultation. HEART: Heart sounds are regular rate and rhythm. Normal S1, S2. No S3, S4. No murmurs. ABDOMEN: Soft, nontender. No organomegaly. EXTREMITIES: No edema. No cyanosis or clubbing. NEUROLOGIC: Awake and alert. There is no focal neurological deficit at this point in time. IMPRESSION: 1. Symptomatic obstructive sleep apnea, apnea/hypopnea index of 19, treated with a BiPAP pressure of 8/5 cm of water. 2. Hypersomnia, improved. 3. Obesity. Weight is 277 with a BMI of 35.6. PLAN: 1. Weight loss. 2. Offer the patient an AirFit F20 full-face mask, medium size. Another option will be a RetewiWear small-sized full-face mask. He will try both of these options and decide which one will be his mask of choice. Encourage weight loss. See me back in a year's time in followup. MMODL / IJN: [id number] /
== END | disposition home or self-care (01) ==
LOC: SLEEP 15:55
PROVIDERS: ATTEND Internal Medicine Critical Care Medicine
DX: G47.33 Obstructive sleep apnea (adult) (pediatric) (principal); E66.9 Obesity, unspecified; Z68.35 Body mass index [BMI] 35.0-35.9, adult; Z99.89 Dependence on other enabling machines and devices

== ENCOUNTER → 2020-11-15 | Outpatient (CLI) | payer MEDICAID ==
--- NOTE | 2020-11-15 14:09 | CT ---
EXAMINATION TYPE: CT abdomen pelvis wo/w con DATE OF EXAM: 11/15/2020 COMPARISON: CT abdomen and pelvis July 01, 2012 HISTORY: Right side abdominal pain CT DLP: 3141 mGycm, Automated Exposure Control for Dose Reduction was Utilized. CONTRAST: CT scan of the abdomen and pelvis is performed with oral and without and with IV Contrast, patient in jected with 100 mL of Isovue 300. FINDINGS: LUNG BASES: No significant abnormality is appreciated. LIVER/GB: Liver is heterogeneously hypodense consistent with diffuse fatty infiltration on noncontras t images. Cholecystectomy clips are redemonstrated. PANCREAS: No significant abnormality is seen. SPLEEN: No significant abnormality is seen. ADRENALS: No significant abnormality is seen. KIDNEYS: Noncontrast images show 2-3 scattered right renal calculi measuring up to 4 mm in size lower pole level axial image 49 series 3. There is a larger 11 to 12 mm calculus lower pole level left kid amber coronal image 72. There is symmetric cortical medullary uptake and excretion without hydronephros is seen bilaterally. No intraluminal calculi in the bladder. BOWEL: Oral contrast reaches proximal transverse colon level. There is no suspicious small or large b owel dilatation. Few diverticula in the sigmoid colon. No CT evidence for acute diverticulitis. PROSTATE/SEMINAL VESICLES: No gross abnormality seen. LYMPH NODES: No greater than 1cm abdominal or pelvic lymph nodes are appreciated. OSSEOUS STRUCTURES: Slight scoliotic curvature. Loss of normal lumbar lordosis. Multilevel spondyloli sthesis and degenerative changes with disc space narrowing and spurring. Moderate to severe narrowing and vacuum disc phenomenon L5-S1 level. OTHER: New Moderate-sized fat-containing left periumbilical hernia axial image 60. IMPRESSION: No significant new or acute finding is seen to account for patient's clinical symptoms.
== END | disposition home or self-care (01) ==
LOC: RADCTMAIN 12:07
PROVIDERS: ATTEND Family Medicine
DX: R85.0 Abnormal level of enzymes in specimens from digestive organs and abdominal cavity (principal)
CPT/HCPCS: 74178; Q9967